=== PATIENT | male | born 1950 | race Caucasian/White ===

== ENCOUNTER → 2016-12-16 | Outpatient (CLI) | payer BC ==
--- NOTE | 2016-12-16 08:52 | DIAGNOSTIC IMAGING REPORT ---
CERVICAL SPINE MRI HISTORY: Headache radiculopathy TECHNIQUE: Multiplanar multisequence MRI of the cervical spine was performed without the use of contrast. COMPARISON STUDY: 11/18/2012 FINDINGS: Mild disc desiccation throughout the entire cervical region. Unremarkable signal characteristics the cervical cord. Posterior osteophyte C5-C6 similar compared to the prior study based on the sagittal images. C2-C3: No significant central canal or neural foraminal narrowing. C3-C4: Minimal left posterior disc bulge showing no significant impact with the cervical cord. Partial effacement anterior left subarachnoid space. No compromise of the neural foramina. C4-C5: Minimal left central disc bulge. Mild osteophytic narrowing left neuroforamina. C5-C6: Left posterior bulging disc with significant narrowing of the neuroforamina bilaterally primarily on osteophytic bases. This is similar compared to the prior study. C6-C7: Left central bulging disc creating minimal impact left anterior cervical cord and moderate narrowing left neural foramina. Right neuroforamina shows moderate osteophytic narrowing. C7-T1: No significant central canal or neural foraminal narrowing. IMPRESSION: 1. Left posterior bulging disc C5-C6 with osteophytic narrowing of the neuroforamina bilaterally. This is similar to the prior study. 2. Mild left central disc bulge C4-C5 with moderate osteophytic narrowing left neuroforamina. 3. Left central disc bulge C6-C7 similar compared to the prior study. 4. No significant change compared to the prior study. Electronically signed by: Khris Willard M.D. 12/16/2016 8:51 AM Dictated Date/Time: 12/16/2016 8:44 AM
== END | disposition home or self-care (01) ==
LOC: C.OPENMRI 07:48
PROVIDERS: ATTEND Psychiatry & Neurology Neurology
DX: M54.12 Radiculopathy, cervical region (principal); R51 Headache; M50.222 Other cervical disc displacement at C5-C6 level; M50.223 Other cervical disc displacement at C6-C7 level; M48.02 Spinal stenosis, cervical region

== ENCOUNTER → 2017-01-06 | Outpatient (CLI) | payer BC ==
[~2017-01-06] MED LIST: GADAVIST IV PRN
--- NOTE | 2017-01-06 08:56 | DIAGNOSTIC IMAGING REPORT ---
Brain MRI WITH AND WITHOUT CONTRAST HISTORY: HEADACHE, NEW ONSET HEADACHE ATER AGE 52 TECHNIQUE: Multiplanar multisequence MRI of the brain was performed both before and after the intravenous administration of contrast. COMPARISON STUDY: None. FINDINGS: There is no mass, hematoma, midline shift, or acute infarct. Moderate mucosal thickening within the ethmoid air cells and maxillary sinuses. Trace fluid within the left maxillary sinus.. The mastoid or cells are clear. The ventricles and sulci are within normal limits. Scattered foci of T2 hyperintensity seen within the periventricular and subcortical white matter are nonspecific but suggestive of mild microvascular ischemic changes. The major vascular flow voids at the skull base are well-maintained. No abnormal enhancement. IMPRESSION: No acute intracranial abnormality. Scattered foci of T2 hyperintensity seen within the periventricular and subcortical white matter are nonspecific but favor microvascular ischemic change. Sinus disease as described above. Electronically signed by: Ramesh Boogie M.D. 01/06/2017 8:54 AM Dictated Date/Time: 01/06/2017 8:48 AM
== END | disposition home or self-care (01) ==
LOC: C.OPENMRI 07:40
PROVIDERS: ATTEND Psychiatry & Neurology Neurology
DX: R51 Headache (principal); R90.82 White matter disease, unspecified

== ENCOUNTER → 2017-07-31 | Outpatient (CLI) | payer BC ==
[~2017-07-31] MED LIST changes: -GADAVIST IV PRN; +OPTIRAY 320 IV PRN
--- NOTE | 2017-07-31 08:04 | DIAGNOSTIC IMAGING REPORT ---
CT OF THE CHEST WITH IV CONTRAST CLINICAL HISTORY: K21.9 Laryngopharyngeal [id number] NONSMOKER WITH A SIX-MONTH HISTORY OF COUGH. Evaluate FOR UNDERLYING LUNG CARCINOMA COMPARISON STUDY: No previous studies for comparison. TECHNIQUE: Following the IV administration of 92 mL of Optiray-320, CT of the thorax was performed from the thoracic inlet to the lung bases. Images are reviewed in the axial, sagittal, and coronal planes. IV contrast was administered without complication. A dose lowering technique was utilized adhering to the principles of ALARA. CT DOSE: 531.67 mGycm FINDINGS: Thyroid: There is a 5 mm left lobe thyroid nodule. Thoracic aorta: The thoracic aorta is normal in course and caliber, noting standard 3-vessel arch anatomy. No aneurysm or dissection is seen. Pulmonary vasculature: The pulmonary trunk is normal in caliber. There are no central filling defects identified to suggest pulmonary embolus. Note that this examination was not protocoled for the evaluation of pulmonary emboli. HEART: There are coronary artery calcifications. Lungs and pleural spaces: No pleural effusions are visualized. There is no focal pulmonary consolidation. There is a solid 3.5 mm pulmonary nodule within the lingula as visualized in image #[id number]. There are few tiny pleural calcifications present. There is a solid 4 mm pleural-based nodule within the left lower lobe as visualized in image #[id number]. There is a linear scarring/atelectasis within the right middle lobe. Mediastinum: There is no mediastinal lymphadenopathy. Audrey: Right hilar lymph nodes are the upper limits of normal in size. Axilla: There is no evidence of pathologic axillary lymphadenopathy Upper abdomen: There is hepatic steatosis Skeletal structures: There are no lytic or blastic osseous lesions. IMPRESSION: 1. 3.5 mm solid point nodule within the lingula. 4 mm pleural-based solid nodule with left lower lobe. 2. No evidence of pathologic adenopathy by size criteria 3. In a high risk patient, a 12 month follow-up is optional. Please refer to below summary of Fleischner criteria recommendations for follow-up of incidental CT nodules (Octavio Rivera, Guidelines for management of small pulmonary nodules detected on CT scans: A statement from the Fleischner Society, Radiology 237: [phone].) SOLID NODULES Solitary nodule size: <6 mm * low risk patients: no follow-up needed * high risk patients: optional CT at 12 months Solitary nodule size: 6-8 mm * low risk patients: follow-up at 6-12 months, then consider further follow-up at 18-24 months * high risk patients: initial follow-up CT at 6-12 months and then at 18-24 months if no change Solitary nodule size: >8 mm * either low or high risk patients - consider follow-up CT at 3 months, and/or CT-PET, and/or biopsy Multiple nodules size: <6 mm * low risk patients: no routine follow-up * high risk patients: optional CT at 12 months Multiple nodules size: 6-8 mm * low risk patients: follow-up at 3-6 months, then consider further follow-up at 18-24 months * high risk patients: follow-up at 3-6 months, then at 18-24 months if no change Multiple nodules size: >8 mm * low risk patients: follow-up at 3-6 months, then consider further follow-up at 18-24 months * high risk patients: follow-up at 3-6 months, then at 18-24 months if no change Note: newly detected indeterminate nodule in persons 35 years of age or older. * low risk patients: minimal or absent history of smoking and/or other known risk factors * high risk patients: history of smoking or of other known risk factors (e.g. first degree relative with lung cancer, or exposure to asbestos, radon, uranium) * if a nodule up to 8 mm is partly solid or is ground glass further follow-up is required after 24 months to exclude possible slow growing adenocarcinoma (AUREA) SUBSOLID NODULES Solitary pure ground-glass nodule * nodule size <6 mm - no CT follow-up required * nodule size >=6 mm - follow-up CT at 6-12 months, then every 2 years until 5 years Solitary part-solid nodule * nodule size <6 mm - no CT follow-up required * nodule size >=6 mm - follow-up CT at 3-6 months. If unchanged, and solid component remains <6 mm, then annual follow-up for 5 years Multiple subsolid nodules * nodule size <6 mm - follow-up CT at 3-6 months, consider further follow-up at 2 and 4 years if stable * nodule size >=6 mm - follow-up CT at 3-6 months, subsequent management based on the most suspicious nodule(s) Electronically signed by: Wild Shelton M.D. 07/31/2017 8:03 AM Dictated Date/Time: 07/31/2017 7:56 AM
--- NOTE | 2017-07-31 08:29 | DIAGNOSTIC IMAGING REPORT ---
(BARIUM SWALLOW) ESOPHAGUS CLINICAL HISTORY: K21.9 Laryngopharyngeal [id number] NONSMOKER WITH A SIX-MONTH HISTORY OF COUGH, reflux COMPARISON STUDY: None FLUOROSCOPY TIME: 1 minute. NUMBER OF FLUOROSCOPIC IMAGES: 19 FINDINGS: The patient swallowed effervescent granules and barium without difficulty. There is no aspiration. No esophageal masses or ulcerations are visualized. No strictures are evident. No reflux is identified during the study. IMPRESSION: Normal study Electronically signed by: Wild Shelton M.D. 07/31/2017 8:28 AM Dictated Date/Time: 07/31/2017 8:26 AM
== END | disposition home or self-care (01) ==
LOC: C.CTS 07:06
DX: K21.9 Gastro-esophageal reflux disease without esophagitis (principal); R05 Cough; R91.8 Other nonspecific abnormal finding of lung field